=== PATIENT | male | born 1960 | race Caucasian/White ===

== ENCOUNTER 2023-06-29 10:22 | Day surgery (SDC) | payer BC ==
[~2023-06-29] VITALS: Ht 185.4 cm; Wt 117.9 kg
[2023-06-29] MEDS ORDERED: ELIQUIS 5MG PO (11:03)
[2023-06-29] MEDS ORDERED: GLUCOPHAGE XR750 MG PO (11:03)
[2023-06-29] MEDS ORDERED: PROTONIX 40MG T40 MG PO (11:03)
[2023-06-29] MEDS ORDERED: LYRICA 50MG CAP50 MG PO (11:04)
[2023-06-29] MEDS ORDERED: NORCO 325 MG-7.1 TAB PO (11:05)
[2023-06-29] MEDS ORDERED: IBU600 MG PO (11:05)
[2023-06-29 12:06] VITALS: BP 125/58; PULSE 65; TEMP 98.2
[2023-06-29 15:01] VITALS: BP 123/57; PULSE 81
--- NOTE | 2023-06-29 15:01 | NUR ---
PATIENT RETURNS TO ROOM 3 PER CART FROM SURGERY ACCOMPANIED BY LATOYA COLLINS AND YAMIL Foster CRNA. SIDERAILS UP X2. IVF INFUSING AND SITE IS FREE OF REDNESS OR SWELLING. DRESSING COVERING THE LEFT PORT A CATHETER SITE DRY AND AREA IS SOFT TO TOUCH. ROOM AIR SATS 94% AND TEMP 97.9. ALLOWED TO REST WITH EYES CLOSED AND WILL CONTINUE TO MONITOR. SPOUSE IN ROOM. CALL LIGHT IN REACH.
[2023-06-29 15:16] VITALS: BP 128/52; PULSE 81
--- NOTE | 2023-06-29 15:16 | NUR ---
RESPONDING TO VERBAL COMMANDS AND EYES OPEN. DENIES PAIN OR NAUSEA. TAKING ICE CHIPS. ROOM AIR SATS 93%. SPOUSE REMAINS IN ROOM.
[2023-06-29 15:31] VITALS: BP 115/58; PULSE 78
--- NOTE | 2023-06-29 15:31 | NUR ---
IV TO INT. ASSISTED UP TO THE BATHROOM. GAIT STEADY. VOIDS AND RETURNS TO ROOM. DISMISSAL INSTRUCTIONS WERE GIVEN AND SPOUSE SIGNS THESE. SPOUSE IN RN AND VERY KNOWLEDEGABLE. INSTRUCTED TO CONTACT THE OFFICE FOR ANY QUESTIONS OR CONCERNS AND PROVIDED OFFICE NUMBER.
--- NOTE | 2023-06-29 15:45 | NUR ---
INT DISCONTINUED AND SITE IS FREE OF REDNESS OR SWELLING. PATIENT IS DRESSED AND READY FOR DISCHARGE.
--- NOTE | 2023-06-29 15:53 | NUR ---
PATIENT DISMISSED PER PRIVATE VEHICLE DRIVEN BY SPOUSE AND TAKEN TO CAR PER WHEELCHAIR BY THIS RN AND ASSISTED INTO CAR WITH DISMISSAL INSTRUCTIONS IN HAND.
== END 2023-06-29 15:53 | disposition home or self-care (01) ==
LOC: SDCO 10:22
DX: C20 Malignant neoplasm of rectum (principal); Z79.01 Long term (current) use of anticoagulants; Z87.891 Personal history of nicotine dependence
CPT/HCPCS: C1788; J0360; J0690; J1644; J1920; J2704; J3010; J7120

== ENCOUNTER 2023-07-10 13:45 | Day surgery (SDC) | payer BC ==
[~2023-07-10] VITALS: Ht 185.4 cm; Wt 119.6 kg
[~2023-07-10 13:45] MED LIST: ELIQUIS 5MG PO; GLUCOPHAGE XR750 MG PO; IBU600 MG PO; LYRICA 50MG CAP50 MG PO; NORCO 325 MG-7.1 TAB PO; PROTONIX 40MG T40 MG PO
[2023-07-10 15:08] VITALS: BP 188/76; PULSE 67; TEMP 97.9
[2023-07-10 17:10] VITALS: BP 144/97; PULSE 80; TEMP 98.1
[2023-07-10 17:25] VITALS: BP 137/87; PULSE 68
[2023-07-10 17:40] VITALS: BP 143/81; PULSE 64
[2023-07-10 17:55] VITALS: BP 163/76; PULSE 64
--- NOTE | 2023-07-10 18:15 | NUR ---
1710 RETURNS TO ROOM 8 PER CART. AWAKE, ALERT. RESP UNLABORED. HOB ELEVATED 45 DEGREES. VITAL SIGNS OBTAINED. DENIES PAIN OR URINARY URGENCY. CALL LIGHT AT SIDE. IN ROOM 1725 HOB ELEVATED 75 DEGREES. TOLERATES PO JUICE WITHOUT NAUSEA 1730 DISCHARGE INSTRUCTIONS REVIEWED. PATIENT VERBALIZES UNDERSTANDING. COPY PROVIDED IN DISCHARGE FOLDER 1745 AWAKE, ALERT, CONVERSES APPROPRIATELY. REPORTS COMFORT 1800 SITS ON EDGE OF CART. DRESSES WITH ASSIST FROM , THEN AMBULATES TO BATHROOM WITH STANDBY ASSIST, REPORTS VOIDED WITHOUT DIFFICULTY
== END 2023-07-10 18:15 | disposition home or self-care (01) ==
LOC: SDCO 13:45
DX: N13.1 Hydronephrosis with ureteral stricture, not elsewhere classified (principal); C18.9 Malignant neoplasm of colon, unspecified; Z87.891 Personal history of nicotine dependence
CPT/HCPCS: C1769; C2617; J0690; J2704; J7120; Q9967

== ENCOUNTER 2024-01-10 11:04 | Inpatient (IN) | payer BC ==
[2024-01-10] VITALS (8 sets, daily range): BP systolic 139–163; BP diastolic 81–89; PULSE 85–96; TEMP 97.5–98.2
[~2024-01-10] VITALS: Ht 185.4 cm; Wt 109.0 kg
[2024-01-10] MEDS ORDERED: LR 1,000 ML IV ONE (11:30)
[2024-01-10 12:03] LABS: ALBUMIN 2.6 g/dL (3.4-4.8); BILIRUBIN,TOTAL 0.5 mg/dL (0.2-1.2); C-REACTIVE PROTEIN 17.12 mg/dL (0.00-0.50); CALCIUM 8.6 mg/dL (8.4-10.2); CREATININE, serum 4.42 mg/dL (0.72-1.25); POTASSIUM 5.3 mEq/L (3.5-4.5); TOTAL PROTEIN 7.6 g/dl (6.2-8.1)
[2024-01-10 12:12] LABS: TROPONIN-I 0.037 ng/mL (0.00-0.033)
[2024-01-10 12:12] LABS: COLLECTION METHOD CLEAN CATCH
[2024-01-10] MEDS ORDERED: Cefepime 2 G in Water For Injection,Sterile 20 ML IV ONE (12:15)
[2024-01-10 12:25] LABS: URINE APPEARANCE CLEAR (CLEAR/HAZY); URINE BLOOD 3+ (NEGATIVE); URINE COLOR YELLOW (YELLOW); URINE GLUCOSE NEGATIVE (NEGATIVE); URINE KETONE NEGATIVE (NEGATIVE); URINE NITRATE NEGATIVE (NEGATIVE); URINE PROTEIN(semi-quant) 1+ (NEGATIVE); URINE UROBILINOGEN 0.2 E.U/dL (0.2-1.0)
[2024-01-10 12:44] LABS: BASO % 0.3 % (0.0-2.0); EOS % 0.4 % (0.0-4.0); GRAN # 6.4 K/mm3 (1.4-6.5); LYMPH # 0.4 K/mm3 (1.2-3.4); LYMPH % 5.8 % (20.0-51.0); MEAN CELL VOLUME 89 fl (80.0-100.0); MEAN CORPUSCULAR HGB CONC 33 g/dl (33.0-37.0); MEAN PLATELET VOLUME 10.6 fl (7.4-10.4); MONO # 0.5 K/mm3 (0.1-0.6); MONO % 7.1 % (1.7-9.3); PLATELET COUNT 212 K/mm3 (130-400); RED BLOOD COUNT 2.58 M/mm3 (4.20-5.60); REDCELL DISTRIBUTION WIDTH-CV 14.9 % (11.5-14.5)
[2024-01-10 12:45] LABS: HEMATOCRIT 22.9 % (42.0-52.0); HEMOGLOBIN 7.5 g/dl (13.5-18.0); MEAN CORPUSCULAR HEMOGLOBIN 29 pg (27-31)
[2024-01-10] MEDS ORDERED: Polyethylene Glycol 3350 17 GM PDS PO PRN (13:00)
[2024-01-10] MEDS ORDERED: Ondansetron 4 MG/2 ML VIAL IV PRN (13:00)
[2024-01-10] MEDS ORDERED: LR 1,000 ML IV SCH (13:00)
[2024-01-10] MEDS ORDERED: Acetaminophen 500 MG TAB PO PRN (13:00)
[2024-01-10] MEDS ORDERED: NS 1,000 ML IV SCH (13:00)
[2024-01-10] MEDS ORDERED: Docusate Sodium 100 MG CAP PO PRN (13:00)
[2024-01-10] MEDS ORDERED: LYRICA 150MG C150 MG PO (13:17)
[2024-01-10] MEDS ORDERED: KADIAN10 MG (13:19)
[2024-01-10] MEDS ORDERED: DAZIDOX10 MG PO (13:20)
[2024-01-10] MEDS ORDERED: oxyCODONE 5 MG TAB PO PRN (13:30)
[2024-01-10] MEDS ORDERED: MOUNJARO2.5 MG/0.5 SQ (14:21)
--- NOTE | 2024-01-10 15:00 | NUR ---
PATIENT AWAKE AND ALERT SITTING UP IN BED. CALL LIGHT WITHIN REACH. VSS. PATIENT DENIES ANY NEEDS OR COMPLAINTS AT THIS TIME.
[2024-01-10] MEDS ORDERED: Sodium Zirconium Cyclosilicate for Oral Susp 10 GM PACKET PO ONE (15:30)
[2024-01-10] MEDS ORDERED: Sodium Bicarbonate/Water,Steri 1,150 ML IV SCH (15:30)
[2024-01-10] MEDS ORDERED: Insulin Lispro (HumaLOG) SQ SCH (17:00)
--- NOTE | 2024-01-10 17:30 | NUR ---
[facility] AND IV SODIUM BICARB INFUSING ORDERED, MD AWARE.
--- NOTE | 2024-01-10 17:46 | NUR ---
MD INFORMED OF PATIENT CRITICAL TROP THAT IS SAME LEVEL PRIOR. VORB FOR TROP REPEAT IN AM WITH AM LABS. ORDERS PLACED.
[2024-01-10] MEDS ORDERED: Albuterol/Ipratropium 3 MG-0.5 MG/3 ML Neb Soln IH SCH (20:00)
[2024-01-10] MEDS ORDERED: Pregabalin 150 MG CAP PO SCH (21:00)
[2024-01-10] MEDS ORDERED: Cefepime 1 G in Water For Injection,Sterile 10 ML IV SCH (21:00)
--- NOTE | 2024-01-10 23:58 | NUR ---
Patient called stating he needed his urinal dumped. This nurse to room and patient accidently spilled urinal on floor. Large amount of urine noted with 150mls in urinal-clear yellow urine. Patient is A&Ox3 but makes some odd comments about a can blowing around outside. When asked if speaking of the noise from [employer] states "No there is a can out there blowing around." No can noted by this nurse. Gait is steady but patient does fall asleep during conversation sodium bicarb still infusing per dr order as well as NS@150ml/hr. Denies current questions/concerns. Call light in reach. Will monitor.
[2024-01-11] VITALS (17 sets, daily range): BP systolic 145–183; BP diastolic 68–90; PULSE 82–105; TEMP 97.3–98.4
[2024-01-11 06:42] LABS: BASO % 0.4 % (0.0-2.0); EOS # 0.1 K/mm3 (0.0-0.7); EOS % 1.9 % (0.0-4.0); GRAN # 3.6 K/mm3 (1.4-6.5); GRAN % 77.1 % (42.2-75.2); LYMPH # 0.5 K/mm3 (1.2-3.4); LYMPH % 11.5 % (20.0-51.0); MEAN CELL VOLUME 93 fl (80.0-100.0); MEAN CORPUSCULAR HGB CONC 31 g/dl (33.0-37.0); MEAN PLATELET VOLUME 11.3 fl (7.4-10.4); MONO # 0.4 K/mm3 (0.1-0.6); MONO % 8.9 % (1.7-9.3); PLATELET COUNT 170 K/mm3 (130-400); RED BLOOD COUNT 2.12 M/mm3 (4.20-5.60); REDCELL DISTRIBUTION WIDTH-CV 15.3 % (11.5-14.5)
[2024-01-11 06:43] LABS: HEMATOCRIT 19.7 % (42.0-52.0); HEMOGLOBIN 6.1 g/dl (13.5-18.0); MEAN CORPUSCULAR HEMOGLOBIN 29 pg (27-31)
--- NOTE | 2024-01-11 06:52 | NUR ---
Patient rested off and on this shift. Had several episodes of urinary incontinence due to urgency. Denied nausea/shortness of breath. VS stable with slight elevation in blood pressure. AM HGB 6.1-Dr Munoz notified. Report given to DENNIS Owusu. Will monitor.
--- NOTE | 2024-01-11 06:59 | NUR ---
PATIENT AWAKE AND ALERT, SITTING UP IN BED. PATIENT VOICED ISSUES WITH URINARY URGENCY OVER NGITH (NOT A NEW ISSUE). PATIENT MITUL PAD CHANGED AND HE WAS ASSISTED TO CLEAN UP. PATIENT DENIES ANY NEEDS OR COMPLATINS AT THIS TIME. CALL LIGHT WTIHIN REACH.
[2024-01-11 07:04] LABS: CALCIUM 7.6 mg/dL (8.4-10.2); CREATININE, serum 3.81 mg/dL (0.72-1.25); POTASSIUM 3.6 mEq/L (3.5-4.5)
[2024-01-11] MEDS ORDERED: Glucagon 1 MG VIAL IM PRN (07:15)
[2024-01-11] MEDS ORDERED: Dextrose (Glucose) 15 GM (4 x 3.75 GM) Chewable TABLET PACK PO PRN (07:15)
[2024-01-11] MEDS ORDERED: Dextrose 50% Water 25 GM/50 ML SYRINGE IV PRN (07:15)
[2024-01-11] MEDS ORDERED: MS CONTIN 115 MG/TAB PO (07:57)
--- NOTE | 2024-01-11 08:39 | NUR ---
VOICEMAIL LEFT FOR DR EMERY REGARDING NEW CONSULT
[2024-01-11] MEDS ORDERED: Insulin Glargine-ygfn (Lantus) SQ SCH (10:03)
[2024-01-11] MEDS ORDERED: Sodium Bicarbonate 650 MG TAB PO SCH (10:04)
[2024-01-11] MEDS ORDERED: TYLENOL 500MG500 MG PO (10:12)
[2024-01-11] MEDS ORDERED: CINVANTI130 MG/18 IV (10:20)
[2024-01-11] MEDS ORDERED: SUSTOL10 MG/0.4 SQ (10:22)
[2024-01-11] MEDS ORDERED: DEXAMETHASON10 MG/ML IJ (10:22)
[2024-01-11] MEDS ORDERED: [UNRECOGNIZED DRUG - OTHER] IV (10:24)
[2024-01-11] MEDS ORDERED: LEUCOVORIN CAL IV (10:29)
[2024-01-11] MEDS ORDERED: MVASI25 MG/1 ML IV (10:30)
[2024-01-11] MEDS ORDERED: ADRUCIL50 MG/ML IV (10:30)
[2024-01-11] MEDS ORDERED: 5FU 1GM/20 ML IV (10:31)
[2024-01-11] MEDS ORDERED: HEPARIN 50500 U/5 ML IV (10:32)
[2024-01-11] MEDS ORDERED: ATROPINE IJ (10:32)
--- NOTE | 2024-01-11 13:20 | NUR ---
Occupational Therapist Rehab Manager met with patient to discuss discharge planning. Patient lives in [place] with his , Bronwyn (ph#[phone]) and sees Dr. Goodwin for primary care. Patient gets his medications from [facility] in with no difficulties. Patient reports using an ostomy and no other DME. Patient is normally independent with ADLS and plans to return home at time of discharge. Patient has been getting chemotherapy with Dr. Russ and stated he believes he has one more scheduled treatment. SW inquired about DPOA-[facility] and patient stated his , Bronwyn is designated. Discharge Plan; Home
--- NOTE | 2024-01-11 14:30 | NUR ---
BLOOD TRANSFUSION COMPLETE
--- NOTE | 2024-01-11 14:56 | NUR ---
PATIENT SUCCESSFULLY MOVED TO ROOM 329 FROM 316. IS AWARE.
[2024-01-11 15:50] LABS: HEMOGLOBIN 7.4 g/dl (13.5-18.0)
[2024-01-11] MEDS ORDERED: Acetaminophen 500 MG TAB PO SCH (19:00)
--- NOTE | 2024-01-11 21:00 | NUR ---
UPON SHIFT ASSESSMENT, PATIENT WAS LYING IN BED ASLEEP. HE WAS EASY TO AROUSE AND IS AXO X4. ALL LUNG SOUNDS WERE DIMISHED AND BRADEN WAS NOTED WHEN AMBULATING TO RESTROOM. VS ARE WNL. PATIENT DENIES PAIN AND OTHER NEEDS AT THIS TIME. CALL LIGHT WITHIN REACH
--- NOTE | 2024-01-11 22:30 | NUR ---
PATIENT AMBULATED TO RESTROOM STATED FELT A LITTLE DIZZY. VITAL SIGNS RECHECK-180/80BP, 95% O2 ON RA AND PULSE 93. WILL REEVALUATE HYPERTENSION IN 20 MINUES THIS MAY BE D/T AMBULATING TO RESTROOM. PATIENT STATES DIZZINESS NO LONGER PRESENT. RESTING IN BED CALL LIGHT WITHIN REACH, BED ALARM ON.
--- NOTE | 2024-01-11 23:30 | NUR ---
PATIENT BP NOW 153 SYSTOLIC
[2024-01-12] VITALS (23 sets, daily range): BP systolic 131–175; BP diastolic 67–95; PULSE 75–97; TEMP 97.3–98.3
[2024-01-12 04:59] LABS: BASO % 0.4 % (0.0-2.0); EOS # 0.1 K/mm3 (0.0-0.7); EOS % 2.6 % (0.0-4.0); GRAN # 3.7 K/mm3 (1.4-6.5); GRAN % 78.9 % (42.2-75.2); LYMPH # 0.4 K/mm3 (1.2-3.4); LYMPH % 7.9 % (20.0-51.0); MEAN CORPUSCULAR HGB CONC 33 g/dl (33.0-37.0); MEAN PLATELET VOLUME 11.3 fl (7.4-10.4); MONO # 0.5 K/mm3 (0.1-0.6); MONO % 9.8 % (1.7-9.3); PLATELET COUNT 152 K/mm3 (130-400); RED BLOOD COUNT 2.42 M/mm3 (4.20-5.60)
[2024-01-12 05:07] LABS: HEMATOCRIT 21.4 % (42.0-52.0); HEMOGLOBIN 7.1 g/dl (13.5-18.0); MEAN CELL VOLUME 88 fl (80.0-100.0); MEAN CORPUSCULAR HEMOGLOBIN 29 pg (27-31)
[2024-01-12 05:15] LABS: CALCIUM 7.7 mg/dL (8.4-10.2); CREATININE, serum 3.94 mg/dL (0.72-1.25); POTASSIUM 3.9 mEq/L (3.5-4.5)
--- NOTE | 2024-01-12 07:55 | NUR ---
Patient in bed getting a breathing tx. A&Ox3. VSS. IV CDI, fluids infusing. Denies pain and discomfort. Colostomy intact, patient independent with colostomy. SCD BLE. NPO for a procedure. Call light within reach
[2024-01-12] MEDS ORDERED: fentaNYL 50 MCG/ML 2 ML VIAL ONE (08:44)
[2024-01-12] MEDS ORDERED: LR 1,000 ML IV SCH (08:45)
[2024-01-12] MEDS ORDERED: HYDROmorphone 1 MG/1 ML SYRINGE [PACU/SDC ONLY] IV PRN (08:45)
[2024-01-12] MEDS ORDERED: droPERidol 2.5 MG/ML 2 ML VIAL IV PRN (08:45)
[2024-01-12] MEDS ORDERED: Lidocaine PF 2% (20 MG/ML) 5 ML VIAL ONE (08:45)
[2024-01-12] MEDS ORDERED: Ondansetron 4 MG/2 ML VIAL ONE (08:45)
[2024-01-12] MEDS ORDERED: hydrALAZINE 20 MG/ML 1 ML VIAL IV PRN (08:45)
[2024-01-12] MEDS ORDERED: NS 10 ML IV ONE (08:45)
[2024-01-12] MEDS ORDERED: dexAMETHasone 10 MG/ML VIAL ONE (08:45)
--- NOTE | 2024-01-12 08:45 | NUR ---
PATIENT TAKEN TO OR. FAMILY AT BEDSIDE.
[2024-01-12] MEDS ORDERED: Lidocaine 2% (20 MG/ML) 20 ML UROJET UR ONE (08:55)
--- NOTE | 2024-01-12 10:00 | NUR ---
PATIENT TO ROOM 329 FROM PACU AFTER OR PROCEDURE. A&O x4. HERNANDEZ PLACED IN SURGERY. DRAINING CLEAR, YELLOW URINE. MONITORING POST OP VITALS. VSS. IV SITE CLEAN, DRY, AND INTACT. TOLERATING CLEAR FLUIDS. PATIENT REORIENTATED TO ROOM AND SURROUNDINGS. RESTING IN BED WITH FAMILY AT BEDSIDE. NO C/O PAIN.
--- NOTE | 2024-01-12 12:44 | NUR ---
Data: Patient politely declined Spiritual Care visit offered during Drawbridge Operator rounds. Patient took the opportunity to compliment the staff for the care and treatment he has received. Assessment: Patient was complimentary; positive attitude. Plan of Care: Chaplains will remain available if requested while Patient is admitted to this hospital.
--- NOTE | 2024-01-12 18:56 | NUR ---
Patient laying in bed, A&Ox4. VSS. IV CDI, fluids infusing. Romero intact. Denies pain and discomfort. Colostomy intact. SCD BLE. No further needs expressed. Call light within reach
[2024-01-13] VITALS (12 sets, daily range): BP systolic 131–162; BP diastolic 74–94; PULSE 72–95; TEMP 97.5–98.3
[2024-01-13 01:55] LABS: CALCIUM 7.9 mg/dL (8.4-10.2); CREATININE, serum 3.01 mg/dL (0.72-1.25); POTASSIUM 4.1 mEq/L (3.5-4.5)
[2024-01-13 01:56] LABS: BASO % 0.2 % (0.0-2.0); EOS % 0.5 % (0.0-4.0); GRAN # 3.5 K/mm3 (1.4-6.5); LYMPH # 0.4 K/mm3 (1.2-3.4); LYMPH % 8.4 % (20.0-51.0); MEAN CELL VOLUME 88 fl (80.0-100.0); MEAN CORPUSCULAR HGB CONC 33 g/dl (33.0-37.0); MEAN PLATELET VOLUME 11.1 fl (7.4-10.4); MONO # 0.5 K/mm3 (0.1-0.6); MONO % 10.7 % (1.7-9.3); PLATELET COUNT 167 K/mm3 (130-400); RED BLOOD COUNT 2.63 M/mm3 (4.20-5.60); REDCELL DISTRIBUTION WIDTH-CV 15.5 % (11.5-14.5)
[2024-01-13 02:02] LABS: HEMOGLOBIN 7.5 g/dl (13.5-18.0); MEAN CORPUSCULAR HEMOGLOBIN 29 pg (27-31)
--- NOTE | 2024-01-13 06:50 | NUR ---
awake resting in bed, bedside shift report received from Rosario, RN
--- NOTE | 2024-01-13 08:55 | NUR ---
resting in bed looking at tablet, full assessment completed, see interventions for further info, had breakfast and tolerated well, therapy in to work with patient and will have him take a walk in the boss
--- NOTE | 2024-01-13 09:55 | NUR ---
medicated with scheduled tylenol, states the back of his legs hurt after ambulating with therapy
--- NOTE | 2024-01-13 14:51 | NUR ---
up and ambulating in boss independently with family at side
--- NOTE | 2024-01-13 15:10 | NUR ---
c/o pain 02/15 to legs, medicated with roxicodone 10mg po, also states had not had a bowel movement for 3-4 days and he and are concerned, given miralax as ordered
--- NOTE | 2024-01-13 18:48 | NUR ---
bedside shift report given to DENNIS Sharp and DEXTER Conley
--- NOTE | 2024-01-13 18:49 | NUR ---
bedside shift report given to DENNIS Sharp and DEXTER Agudelo
--- NOTE | 2024-01-13 19:45 | NUR ---
PT AWAKE AND RESTING IN BED. SCDS ON. DENIES PAIN. SCHEDULED MEDS GIVEN PER eMAR. NO FURTHER CONCERNS AT THIS TIME. CALL LIGHT WITHIN REACH.
--- NOTE | 2024-01-13 21:01 | NUR ---
22g INT to left hand leaking. DCd at this time-cath intact. No redness/swelling noted. Will monitor.
[2024-01-14] VITALS (13 sets, daily range): BP systolic 138–185; BP diastolic 80–101; PULSE 81–99; TEMP 97.2–98.8
--- NOTE | 2024-01-14 05:15 | NUR ---
Agree with shift assessment completed by DENNIS Agudelo.
--- NOTE | 2024-01-14 05:27 | NUR ---
Agree with shift assessment completed by DEXTER Agudelo
--- NOTE | 2024-01-14 08:00 | NUR ---
PATIENT IS A&O X4. BP RUNNING HIGH. OTHER VSS. NO C/O N/V. SCDS ON PATIENT. ASSISTANCE X1 FOR MOBILITY. ADLS INDEPENDENTLY. CENTRAL LINE PATENT W/ NO S/S OF COMPLICATIONS. NS RUNNING AT 75 ML/HR. TOLERATING ADA DIET. CALL LIGHT WITHIN REACH.
--- NOTE | 2024-01-14 08:19 | NUR ---
Spoke to Sima VELARDE about patient elevated BP, she will speak to .
[2024-01-14 09:53] LABS: BASO % 0.9 % (0.0-2.0); EOS # 0.2 K/mm3 (0.0-0.7); EOS % 3.8 % (0.0-4.0); GRAN # 2.9 K/mm3 (1.4-6.5); GRAN % 66.5 % (42.2-75.2); LYMPH # 0.7 K/mm3 (1.2-3.4); LYMPH % 15.1 % (20.0-51.0); MEAN CORPUSCULAR HGB CONC 32 g/dl (33.0-37.0); MONO # 0.6 K/mm3 (0.1-0.6); MONO % 13.5 % (1.7-9.3); PLATELET COUNT 251 K/mm3 (130-400); RED BLOOD COUNT 3.36 M/mm3 (4.20-5.60); REDCELL DISTRIBUTION WIDTH-CV 16.3 % (11.5-14.5)
[2024-01-14 09:59] LABS: HEMATOCRIT 31.1 % (42.0-52.0); HEMOGLOBIN 9.8 g/dl (13.5-18.0); MEAN CELL VOLUME 93 fl (80.0-100.0); MEAN CORPUSCULAR HEMOGLOBIN 29 pg (27-31)
[2024-01-14 10:11] LABS: CREATININE, serum 2.22 mg/dL (0.72-1.25); POTASSIUM 4.2 mEq/L (3.5-4.5)
[2024-01-14 10:18] LABS: MAGNESIUM 0.9 mg/dL (1.6-2.6)
[2024-01-14] MEDS ORDERED: Magnesium Oxide 400 MG TAB PO SCH (10:23)
--- NOTE | 2024-01-14 10:23 | NUR ---
LAB CALLED WITH CRITICAL LAB FOR PATIENT. MAGNESIUM LEVEL REPORTED TO DR. WORLEY.
[2024-01-14] MEDS ORDERED: Magnesium Sulfate 8% 50 ML IV ONE (10:30)
--- NOTE | 2024-01-14 10:51 | NUR ---
DR. WORLEY ROUNDED ON PATIENT WITH AT BEDSIDE. LISTENED IN ON ROUNDING FOR NEW ORDERS AND PLAN.
[2024-01-14] MEDS ORDERED: fentaNYL 25 MCG 72 HR PATCH TD ONE (11:00)
--- NOTE | 2024-01-14 11:49 | NUR ---
HERNANDEZ CATHETER REMOVED. PATIENT TOLERATED WELL AND WAS EDUCATED ON WHAT TO EXPECT.
--- NOTE | 2024-01-14 14:59 | NUR ---
BLADDER SCANNED PATIENT. LARGEST AMOUNT SHOWN WAS 421ML. PATIENT WAS EDUCATED ON PLAN WHEN AMOUNT IS >500ML. PATIENT DID NOT WANT TO INTERVENE AT THIS TIME.
--- NOTE | 2024-01-14 16:59 | NUR ---
CALLED DR. WORLEY ABOUT PATIENT'S HIGH BLOOD PRESSURES. SAID HE WILL GET THE PATIENT STARTED ON SOMETHING TO HELP.
[2024-01-14] MEDS ORDERED: hydrALAZINE 10 MG TAB PO PRN (17:00)
[2024-01-14] MEDS ORDERED: amLODIPine 10 MG TAB PO SCH (17:00)
--- NOTE | 2024-01-14 17:15 | NUR ---
Upated on patient post void residual. Aware of retention of 355ml. Continue to monitor closely. Patient denies feeling bladder distention or discomfort. Did discuss with about Fentynal patch relieving patient pain and discomfort, did make hime aware of daughters concenrns.
--- NOTE | 2024-01-14 21:49 | NUR ---
PT AWAKE AND RESTING IN BED COMPLAINING OF 10/10 PAIN IN HIS ABDOMEN AND RIGHT HIP. MS CONTIN AND TYLENOL GIVEN PER eMAR AND PT REQUESTS. PT EDUCATED ON IMPORTANCE OF CALLING WHEN NEEDING ASSISTANCE TO THE BATHROOM. BED ALARM ON AND CALL LIGHT WITHIN REACH.
--- NOTE | 2024-01-14 21:56 | NUR ---
Agree with shift assessment completed by DEXTER Agudelo.
--- NOTE | 2024-01-14 23:03 | NUR ---
Patient voided at this time with 250ml, this nurse attempted to bladder scan him but refused, will continue to monitor.
[2024-01-15 00:15] VITALS: BP_SYST 160
[2024-01-15 03:41] VITALS: BP 151/93; PULSE 98; TEMP 97.8
[2024-01-15 04:53] VITALS: BP_SYST 151
--- NOTE | 2024-01-15 06:22 | NUR ---
Patient had an uneventful night, has been voiding with adequate amount of output, reports pain is well controlled at this time.
--- NOTE | 2024-01-15 06:40 | NUR ---
PT RESTING IN BED AND WATCHING TV. PT IS ON RA. PT IS AXOX4. PT VOIDING CLEAR YELLOW URINE. PT HAS CALL LIGHT WITHIN REACH AND INSTRUCTED TO CALL WITH ALL NEEDS.
[2024-01-15 06:56] LABS: CALCIUM 8.6 mg/dL (8.4-10.2); CREATININE, serum 1.63 mg/dL (0.72-1.25); MAGNESIUM 1.5 mg/dL (1.6-2.6); POTASSIUM 3.6 mEq/L (3.5-4.5)
[2024-01-15 07:35] VITALS: BP 170/84; PULSE 82; TEMP 98.2
[2024-01-15] MEDS ORDERED: FLOMAX 0.40.4 MG/CAP PO (08:17)
[2024-01-15] MEDS ORDERED: NORVASC 10MG10 MG PO (08:18)
[2024-01-15] MEDS ORDERED: MAG-OX 400400 MG/TAB PO ×2 (08:19→10:35)
[2024-01-15] MEDS ORDERED: Magnesium Sulfate 2 GM/50 ML IV SOLN IV SCH (08:30)
[2024-01-15 09:00] VITALS: BP_SYST 170
[2024-01-15] MEDS ORDERED: FENTANYL 25 MCG TD (10:34)
--- NOTE | 2024-01-15 11:09 | NUR ---
INFUSAPORT FLUSHED WITH HEPARIN. INFUSAPORT DE-ACCESSED WITH NO ISSUES. BANDAID APPLIED.
--- NOTE | 2024-01-15 12:07 | NUR ---
1205-DISCHARGE INSTRUCTIONS DISCUSSED WITH PT. DISCUSSED FOLLOW UP APPOINTENTS AND THAT OFFICES WILL CALL TO SET APPOINTMENTS. ALL QUESTIONS ANSWERED. PT WHEELED OUT FOR DISCHARGE BY PCT TO ER TO MET .
[2024-01-15] MEDS ORDERED: Magnesium Oxide 400 MG TAB PO SCH (17:00)
[2024-01-17] MEDS ORDERED: fentaNYL Patch Removal/Drugbuster TD SCH (11:00)
== END 2024-01-15 12:11 | disposition home or self-care (01) | DRG 194 ==
LOC: COL.ER 11:04 → MEDICAL 12:55 → SURG 12:55
PROVIDERS: Internal Medicine; Nurse Practitioner; ADMIT Internal Medicine
DX: J18.9 Pneumonia, unspecified organism (principal); C19 Malignant neoplasm of rectosigmoid junction; E87.1 Hypo-osmolality and hyponatremia; N17.9 Acute kidney failure, unspecified; N13.30 Unspecified hydronephrosis; E87.20 Acidosis, unspecified; N18.30 Chronic kidney disease, stage 3 unspecified; N13.5 Crossing vessel and stricture of ureter without hydronephrosis; E87.5 Hyperkalemia; E83.42 Hypomagnesemia; D64.9 Anemia, unspecified; E11.9 Type 2 diabetes mellitus without complications; Z79.84 Long term (current) use of oral hypoglycemic drugs; G62.9 Polyneuropathy, unspecified; Z86.718 Personal history of other venous thrombosis and embolism
CPT/HCPCS: A4314; A9270; C1769; C2617; J0690; J0692; J1100; J1644; J1815; J2020; J2405; J2704; J3010; J3370; J3475; J7030; J7040; J7120; P9016; Q3014

== ENCOUNTER → 2024-03-07 | Outpatient (REF) | payer BC ==
[~2024-03-07] MED LIST changes: +5FU 1GM/20 ML IV; +ADRUCIL50 MG/ML IV; +ATROPINE IJ; +CINVANTI130 MG/18 IV; +DAZIDOX10 MG PO; +DEXAMETHASON10 MG/ML IJ; +EFFEXOR 3737.5 MG/TA PO; +FENTANYL 25 MCG TD; +FLOMAX 0.40.4 MG/CAP PO; +HEPARIN 50500 U/5 ML IV; +KADIAN10 MG; +LEUCOVORIN CAL IV; +LYRICA 150MG C150 MG PO; +MAG-OX 400400 MG/TAB PO; +MOUNJARO2.5 MG/0.5 SQ; +MS CONTIN 115 MG/TAB PO; +MVASI25 MG/1 ML IV; +NORVASC 10MG10 MG PO; +SUSTOL10 MG/0.4 SQ; +TYLENOL 500MG500 MG PO; +[UNRECOGNIZED DRUG - OTHER] IV
[2024-03-07 17:21] LABS: ANISOCYTOSIS 2+; EOSINOPHIL 3 % (0-4); HYPOCHROMIA 3+; LYMPHOCYTE 5 % (20.0-51.0); NEUTROPHILS 86 % (42.0-75.2); PLATELET ESTIMATE INCREASED (NORMAL); POLYCHROMASIA 1+
== END ==
LOC: ZCOL.LAB 14:10
PROVIDERS: Family Medicine
DX: K92.1 Melena (principal)

== ENCOUNTER 2024-04-19 15:12 | Emergency (ER) | payer BC ==
[~2024-04-19] VITALS: Ht 185.4 cm; Wt 90.9 kg
[~2024-04-19 15:12] MED LIST changes: +DOXYCYCLINE HY100 MG PO; +OMNICEF 300MG300 MG PO
[2024-04-19 16:15] LABS: MEAN CELL VOLUME 91 fl (80.0-100.0); MEAN CORPUSCULAR HGB CONC 33 g/dl (33.0-37.0); MEAN PLATELET VOLUME 10.5 fl (7.4-10.4); PLATELET COUNT 285 K/mm3 (130-400); RED BLOOD COUNT 2.56 M/mm3 (4.20-5.60); REDCELL DISTRIBUTION WIDTH-CV 14.2 % (11.5-14.5)
[2024-04-19 16:19] LABS: HEMATOCRIT 23.2 % (42.0-52.0); HEMOGLOBIN 7.6 g/dl (13.5-18.0); MEAN CORPUSCULAR HEMOGLOBIN 30 pg (27-31)
[2024-04-19 16:24] LABS: ALBUMIN 1.7 g/dL (3.4-4.8); BILIRUBIN,TOTAL 0.2 mg/dL (0.2-1.2); CALCIUM 8.4 mg/dL (8.4-10.2); POTASSIUM 4.7 mEq/L (3.5-4.5); TOTAL PROTEIN 5.7 g/dl (6.2-8.1)
[2024-04-19 16:29] LABS: TROPONIN-I 0.021 ng/mL (0.00-0.033)
[2024-04-19 16:33] LABS: ANISOCYTOSIS 1+; BAND 1 % (0-10); EOSINOPHIL 2 % (0-4); LYMPHOCYTE 6 % (20.0-51.0); METAMYELOCYTE 1 % (0-0); NEUTROPHILS 87 % (42.0-75.2); PLATELET ESTIMATE NORMAL (NORMAL)
[2024-04-19 17:22] LABS: COLLECTION METHOD CATHETER
[2024-04-19 17:43] LABS: URINE APPEARANCE CLEAR (CLEAR/HAZY); URINE BLOOD 1+ (NEGATIVE); URINE COLOR YELLOW (YELLOW); URINE GLUCOSE NEGATIVE (NEGATIVE); URINE KETONE NEGATIVE (NEGATIVE); URINE NITRATE NEGATIVE (NEGATIVE); URINE PROTEIN(semi-quant) NEGATIVE (NEGATIVE); URINE UROBILINOGEN 0.2 E.U/dL (0.2-1.0)
[2024-04-19 20:08] VITALS: BP 136/87; PULSE 88; TEMP 98.6
[2024-04-19 20:25] VITALS: BP 133/86; PULSE 82; TEMP 98
[2024-04-19 21:10] VITALS: BP 144/84; PULSE 81; TEMP 97.5
[2024-04-19 21:24] LABS: BASO % 0.2 % (0.0-2.0); EOS # 0.1 K/mm3 (0.0-0.7); EOS % 0.7 % (0.0-4.0); GRAN # 15.6 K/mm3 (1.4-6.5); GRAN % 87.2 % (42.2-75.2); LYMPH # 0.6 K/mm3 (1.2-3.4); LYMPH % 3.2 % (20.0-51.0); MEAN CELL VOLUME 90 fl (80.0-100.0); MEAN CORPUSCULAR HGB CONC 33 g/dl (33.0-37.0); MEAN PLATELET VOLUME 10.6 fl (7.4-10.4); MONO # 1.4 K/mm3 (0.1-0.6); MONO % 7.8 % (1.7-9.3); PLATELET COUNT 258 K/mm3 (130-400); REDCELL DISTRIBUTION WIDTH-CV 14.1 % (11.5-14.5)
[2024-04-19] MEDS ORDERED: NS 1,000 ML IV ONE (21:30)
[2024-04-19 21:31] LABS: HEMOGLOBIN 8.6 g/dl (13.5-18.0); MEAN CORPUSCULAR HEMOGLOBIN 30 pg (27-31)
[2024-04-19 22:10] VITALS: BP 156/82; PULSE 83; TEMP 97.7
[2024-04-19 23:06] VITALS: BP 150/83; PULSE 85; TEMP 98.1
[2024-04-19 23:20] VITALS: BP 151/82; PULSE 87
== END 2024-04-19 23:20 | disposition home or self-care (01) ==
LOC: COL.ER 15:12
PROVIDERS: Family Medicine
DX: C18.9 Malignant neoplasm of colon, unspecified (principal); C78.02 Secondary malignant neoplasm of left lung; C78.01 Secondary malignant neoplasm of right lung; D64.9 Anemia, unspecified; R73.9 Hyperglycemia, unspecified; N19 Unspecified kidney failure; Z96.0 Presence of urogenital implants
CPT/HCPCS: P9016